=== PATIENT | male | born 1975 | race Caucasian/White ===

== ENCOUNTER 2017-07-02 18:51 | Inpatient (IN) | payer OTHER ==
[~2017-07-02] VITALS: Ht 175.3 cm; Wt 84.5 kg
--- NOTE | 2017-07-02 20:10 | NUR ---
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 RATES PAIN 10/10 AT THIS TIME AND HAS VOMITED SEVERAL TIMES SINCE ARRIVING TO BED. RESP E/U AT THIS TIME, PT VISIBLY IN PAIN. MSE COMPLETED BY DR CHAKRABORTY.
--- NOTE | 2017-07-02 20:12 | NUR ---
MEDICATED FOR PAIN PER ORDER. SEE EMAR.
--- NOTE | 2017-07-02 20:24 | NUR ---
PT RATES PAIN 7/10 ON RE-EVAL AFTER PAIN MEDICATION. DR CHAKRABORTY AWARE. AWAITING FURTHER ORDERS.
--- NOTE | 2017-07-02 20:28 | NUR ---
PT TO RADIOLOGY VIA [facility] FOR [facility] SCAN
[2017-07-02 20:53] LABS: BASOPHIL % 0.7 % (0-2); PLATELET COUNT 198 x10^3mcL (130-400)
--- NOTE | 2017-07-02 21:01 | NUR ---
PT PROVIDED URINE VIA URINAL, 300 ML CLOUDY YELLOW URINE. PT AAO4, RESP E/U.
[2017-07-02 21:13] LABS: CALCIUM 8.8 mg/dL (8.5-10.1); CARBON DIOXIDE 26.2 mmol/L (21-32); CHLORIDE SERUM 107 mmol/L (98-107); GFR1 > 60 mL/min; GLUCOSE SERUM 100 mg/dL (74-106); POTASSIUM SERUM 3.4 mmol/L (3.5-5.1); SODIUM SERUM 142 mmol/L (136-145)
[2017-07-02 21:18] LABS: ALBUMIN 3.7 g/dL (3.4-5.0); ALKALINE PHOSPHATASE 74 U/L (46-116); ALT/SGPT 26 U/L (16-63); AST/SGOT 16 U/L (15-37); BILIRUBIN TOTAL 0.4 mg/dL (0.20-1.00); TOTAL PROTEIN, SERUM 6.8 g/dL (6.4-8.2)
--- NOTE | 2017-07-02 21:46 | NUR ---
BLOOD CULTURES HAVE BEEN DRAWN
--- NOTE | 2017-07-02 22:20 | NUR ---
CALLED SHRUTHI TO GIVE REPORT, WAS TOLD SHE WILL CALL BACK
--- NOTE | 2017-07-02 22:34 | NUR ---
REPORT GIVEN TO NURSE ASSUMING CARE
--- NOTE | 2017-07-02 22:47 | NUR ---
RECEIVED PT [facility], CAME IN DUE TO LEFT FLANK PAIN W/ NAUSEA AND VOMITING. AAOX4. NO SOB NOTED. DENIES CHEST PAIN/PRESSURE, NSR ON THE MONITOR. C/O 5/10 CRAMPING LEFT FLANK PAIN. DENIES BURNING SENSATION ON URINATION. IV SITE PATENT AND INTACT. SIDE RAILS UPX2. CALL LIGHT ON REACH. ENDORSED
[2017-07-02 22:54] VITALS: BP 121/62
[2017-07-02 23:00] VITALS: Ht 175.3 cm; Wt 84.5 kg
--- NOTE | 2017-07-03 00:44 | NUR ---
REPORTS HAVING LEFT FLANK PAIN 5/10 ON PAIN SCALE WITH NAUSEA. MORPHINE 2MG IV AND ZOFRAN 4MG IV GIVEN. K LEVEL 3.4, KCL PO GIVEN X1. WILL CONTINUE TO MONITOR.
[2017-07-03 01:29] LABS: FREE T4 1.13 ng/dL (0.76-1.46); FREE THYROXINE INDEX 3.2 ug/dL (1.4-4.5); T4(THYROXINE) 9.3 ug/dL (4.7-13.3)
[2017-07-03 01:56] LABS: MAGNESIUM 1.9 mg/dL (1.8-2.4); PHOSPHOROUS 4.5 mg/dL (2.5-4.9)
[2017-07-03 02:25] LABS: T3 TOTAL 1.15 ng/mL
[2017-07-03 02:40] LABS: CHOLESTEROL/HDL RATIO 6.8
[2017-07-03 05:24] VITALS: BP 106/61
[2017-07-03 06:45] LABS: BASOPHIL % 0.1 % (0-2); PLATELET COUNT 179 x10^3mcL (130-400)
[2017-07-03 06:57] LABS: CALCIUM 8.4 mg/dL (8.5-10.1); CARBON DIOXIDE 24.4 mmol/L (21-32); CHLORIDE SERUM 107 mmol/L (98-107); CREATININE SERUM 0.8 mg/dL (0.7-1.3); GFR1 > 60 mL/min; GLUCOSE SERUM 106 mg/dL (74-106); MAGNESIUM 1.8 mg/dL (1.8-2.4); PHOSPHOROUS 3.3 mg/dL (2.5-4.9); POTASSIUM SERUM 4.1 mmol/L (3.5-5.1); SODIUM SERUM 141 mmol/L (136-145)
--- NOTE | 2017-07-03 07:02 | NUR ---
NO ANY DISTRESS THROUGHOUT SHIFT. MORPHINE GIVEN X1 FOR LEFT FLANK PAIN WITH GOOD RELIEF. STRAINED ALL URINE. IVF NS CONTINUED.
[2017-07-03 07:08] LABS: RED CELL DISTRIBUTION WIDTH 14.6 % (11.5-14.5)
--- NOTE | 2017-07-03 08:05 | NUR ---
PATIENT RECEIVED IN BED AWAKE, ALERT, ORIENTED X4, SPEECH CLEAR, DENIES HEADACHE NOR DIZZINESS. BREATHING EVEN AND UNLABORED BS CLEAR, ON ROOM AIR . DENIES CHEST PAINS,TELE#9, HR=76BPM, NSR. ABDOMEN SOFT NON DISTENDED ACTIVE BS, TOLERATED BREAKFAST DENIES N/V. PATIENT STILL COMPLAINED OF BIALT FLANK PAIN MORE PRONOUNCED TO LEFT SIDE, BURNING SANSATION UPON URINATION, ON ABX ROCEPHIN, PATIENT INSTRUCTED ABOUT USING URINAL SO WE COULD STRAIN HIS URINE FOR RENAL CALCULI, URINAL AT BEDSIDE TABLE. PATIENT STATED PAIN IS AT 4/10 WILL MEDICATE.PATIENT INFORMED ABOUT POC THIS SHIFT. SAFETY PRECAUIONS MAINTAINED .WILL CONTINUE TO MONITOR.
--- NOTE | 2017-07-03 08:32 | NUR ---
DR NGUYEN AND RESIDENT DOING ROUND, UPDATED PATIENT WITH PLAN OF CARE, ALL QUESTIONS AND CONCERNS ANSWERED.
--- NOTE | 2017-07-03 09:03 | NUR ---
SCHEDULED MEDS ADMINISTERED, PATIENT INFORMED ABOUT EACH MEDS ACTION AND PURPOSES PRIOR. IN A SITTING POSITION. ALSO COMPLAINED OF BILAT FLANK PAIN MORE PRONOUNCED TO LEFT SIDE, MEDICATED PRN. MADE COMFORTABLE IN BED. WILL MONITOR EFFECTIVENESS.
[2017-07-03 09:06] VITALS: BP 110/64
[2017-07-03 09:53] VITALS: BP 109/68
--- NOTE | 2017-07-03 10:00 | NUR ---
PATIENT CHECKED THIS TIME, EYES CLOSED, SLEEPING, EASILY AWAKEN WHEN NAME CALLED. PATIENT STATED PAIN IS SLOWLY SUBSIDING, RATED AT 2/10. WILL CONTINUE TO MONITOR.
--- NOTE | 2017-07-03 11:38 | NUR ---
VOIDED PER URINAL, DARK TEA COLORED UA , STRAINED NO RENAL CALCULI NOTED. SEND UA SPECIMEN TO LAB.
--- NOTE | 2017-07-03 12:12 | NUR ---
RECEIVED PT FROM [facility]. PT SEEN LYING IN BED, AAOX4. C/O 5-03/04 LEFT FLANK PAIN DESCRIBED CRAMPING. DENIES BURNING SENSATION ON URINATION. SIDE RAILS UPX2. CALL LIGHT ON REACH. WILL CONT TO MONITOR
--- NOTE | 2017-07-03 12:13 | NUR ---
REPORT GIVEN TO JOI TO ASSUME CARE OF THIS PATIENT.
--- NOTE | 2017-07-03 12:23 | NUR ---
MEDICATED W/ NORCO 1 TAB FOR COMPLAINT OF 5-6/10 LEFT FLANK PAIN DESCRIBED CRAMPING. WILL CONT TO MONITOR
[2017-07-03 13:47] VITALS: BP 104/64
[2017-07-03 15:36] LABS: UA SPECIFIC GRAVITY 1.025 (1.005-1.035); microscopic required? YES; urine erythrocyte 3+ (NEGATIVE)
[2017-07-03 15:58] LABS: AMPHETAMINE QUAL UR NONE DETECTED (NEG <=1000)
--- NOTE | 2017-07-03 16:06 | NUR ---
MEDICATED W/ NORCO 1 TAB FOR COMPLAINT OF 6/10 LEFT FLANK PAIN DESCRIBED CRAMPING. WILL CONT TO MONITOR.
--- NOTE | 2017-07-03 16:23 | NUR ---
MEDICATED WITH MORPHINE 2 MG IVP FOR C/O 03/04 LEFT FLANK PAIN DESCRIBED CRAMPING
--- NOTE | 2017-07-03 16:51 | NUR ---
PT LYING IN BED, PT STATED THAT HE HAS 0/10 LEFT FLANK PAIN AT THIS TIME AFTER MORPHINE WAS GIVEN. IV SITE PATENT AND INTACT. SIDE RAILS UPX2. CALL LIGHT ON REACH. WILL CONT TO MONITOR.
[2017-07-03 17:45] VITALS: BP 102/62
--- NOTE | 2017-07-03 19:00 | NUR ---
BEDSIDE REPORT GIVEN TO ELTON MANN FOR CONTINUITY OF CARE. PT SITTING ON THE EDGE OF THE BED, NO C/O SOB AND PAIN.
--- NOTE | 2017-07-03 19:31 | NUR ---
PT RECIEVED AAO REG RESP NO SOB V/S STABLE,KEPT CLEAN AND DRY TO TOUCH,IV INFUSING WELL WITH THE SITE PATENT AND INTACT,BED IN THE LOW POSITION AND LOCKED,PT WITH BRP,BED IN THE LOW POSITION AND LOCKED AND WILL CONTINUE TO MONITOR.
--- NOTE | 2017-07-03 20:22 | NUR ---
PT WITH C/O OF CRAMPS 7/10,WAS GIVEN 2 MG IV MORHINE ORDER AND WILL CONTINUE TO MONITOR.
[2017-07-03 20:43] VITALS: BP 120/75
--- NOTE | 2017-07-03 21:13 | NUR ---
PT FEELS RELIEVED FROM THE PAIN RESTING AT THIS TIME,WILL CONTINUE TO MONITOR.
[2017-07-04 05:46] VITALS: BP 118/68
[2017-07-04 06:24] LABS: CALCIUM 8.2 mg/dL (8.5-10.1); CHLORIDE SERUM 105 mmol/L (98-107); CREATININE SERUM 0.7 mg/dL (0.7-1.3); GFR1 > 60 mL/min; GLUCOSE SERUM 91 mg/dL (74-106); MAGNESIUM 1.8 mg/dL (1.8-2.4); PHOSPHOROUS 2.4 mg/dL (2.5-4.9); SODIUM SERUM 139 mmol/L (136-145)
--- NOTE | 2017-07-04 06:33 | NUR ---
PT HAD A RESTING NIGHT V/S STABLE,KEPT CLEAN AND DRY TO TOUCH AND WILL CONTINUE TO MONITOR.
[2017-07-04 07:00] LABS: BASOPHIL % 0.4 % (0-2); PLATELET COUNT 164 x10^3mcL (130-400); RED CELL DISTRIBUTION WIDTH 14.3 % (11.5-14.5)
--- NOTE | 2017-07-04 07:20 | NUR ---
RECEIVED PT IN BED, A/A/O X 4, CALM, COOPERATIVE. HEART SOUNDS S1/S2. FREDDY RADIAL AND PEDAL PULSES PRESENT, NO EDEMA, CAP REFILL < 3 SECS. FREDDY LUNGS CLEAR, CHEST RISING EVENLY, ON R/A, SPO2 96%. ABD SOFT, ROUND, NON-TENDER, NORMOACTIVE BOWEL SOUNDS X 4 QUADS, LAST BM 07/02/17. VOIDS FREELY, NO DYSURIA, HAS L FLANK PAIN 3/10, DOES NOT WANT PAIN MEDS AT THIS TIME. ABLE TO AMBULATE WITHOUT GAIT OR BALANCE IMPAIRMENT. SKIN INTACT. IV SITE AT [facility]. SIDE RAILS UP X 2, CALL LIGHT WITHIN REACH, BED IN LOW POSITION. WILL CONTINUE TO MONITOR.
--- NOTE | 2017-07-04 08:00 | NUR ---
DR KIM, RESIDENTS, CHARGE NURSE, AND ASSIGNED NURSE CAME IN TO SEE PT; DISCUSSED PLAN OF CARE FOR TODAY, INCLUDING D/C HOME TODAY; ALL QUESTIONS WERE ANSWERED, PT VERBALIZED UNDERSTANDING.
[2017-07-04] MEDS ORDERED: APAP/HYDROCODON1 T13 PO (08:23)
[2017-07-04] MEDS ORDERED: FLO4 PO (08:23)
[2017-07-04] MEDS ORDERED: COL100 PO (08:24)
[2017-07-04] MEDS ORDERED: LEVAQUIN750 MG PO (08:45)
[2017-07-04 10:12] VITALS: BP 121/66
--- NOTE | 2017-07-04 11:00 | NUR ---
PT IN BED, TALKING ON HIS CELLPHONE; NO RESPIRATORY DISTRESS, PAIN, OR DISCOMFORT NOTED. WILL CONTINUE TO MONITOR.
[2017-07-04] MEDS ORDERED: LAC PO (11:25)
--- NOTE | 2017-07-04 14:15 | NUR ---
PT GIVEN DISCHARGE PACKET; DISCUSSED CURRENT STAY, MEDICATIONS, LAB RESULTS, FUTURE APPOINTMENT, AND TEACHINGS RE: DM2, DIET, EXERCISE. ALL QUESTIONS ANSWERED. PT VERBALIZED UNDERSTANDING. ALL FORMS WERE SIGNED.
--- NOTE | 2017-07-04 15:40 | NUR ---
ALL ID BANDS WERE REMOVED, IV SITE D/C'D, CATH TIP INTACT, NO S/S INFECTION. PT [facility], ACCOMPANIED BY INSTRUMENT REPAIRER AND PT'S SON. PT WAS THEN PICKED UP BY [employer]IVATE [employer]. A/A/O X 4, CALM, COOPERATIVE. NO RESPIRATORY DISTRESS, PAIN, OR DISCOMFORT.
== END 2017-07-04 15:42 | disposition home or self-care (01) | DRG 693 ==
LOC: ED 18:51 → DU 22:07 → MU 22:07 → DU 22:44 → MU 07-03 14:37
PROVIDERS: Emergency Medicine; Family Medicine Sports Medicine; ADMIT Student in an Organized Health Care Education/Training Program
DX: N20.0 Calculus of kidney (principal); N17.0 Acute kidney failure with tubular necrosis; N39.0 Urinary tract infection, site not specified; E87.6 Hypokalemia; R73.03 Prediabetes; E78.2 Mixed hyperlipidemia; Z87.442 Personal history of urinary calculi; F17.210 Nicotine dependence, cigarettes, uncomplicated
CPT/HCPCS: 83880; 84439; 90658; J0696; J1885; J2270; J2405; J7030; Q0092